=== PATIENT | female | born 1975 | race Caucasian/White ===

== ENCOUNTER 2019-05-05 19:25 | Emergency (ER) | payer SELFPAY ==
--- OUTSIDE RECORDS SUMMARY | 2019-05-05 19:28 | XMS REPORT ---
:1975 [facility] Address [address] [place] [address] Care Team Providers Name Role Phone Unavailable Unavailable Unavailable Problems This patient has no known problems. Allergies, Adverse Reactions, Alerts This patient has no known allergies or adverse reactions. Medications This patient has no known medications. Results Test Description Test Time Test Comments Text Results Atomic Results Result Comments SCR MAMM BILATERAL NELY 2019-03-28 14:01:17 - SCR MAMM BILATERAL NELY CAD CAD DIGITAL DIGITALBILATERAL DIGITAL SCREENING MAMMOGRAM 3D/2D WITH CAD: 03/25/2019CLINICAL: Asymptomatic. Digital breast tomosynthesis was performed in addition to routine CC and MLO views. Current mammographic images were evaluated by either a [employer] M-Vu or a [employer] ImageChecker CAD (computer aided detection system). No prior exams were available for comparison. The tissue of both breasts is heterogeneously dense. This may lower the sensitivity of mammography. No suspicious mass, architectural distortion, malignant type calcification, or lymph node abnormality detected. IMPRESSION: NEGATIVEThere is no mammographic evidence of malignancy. Resume annual screening mammography in one year. Ratna owen/penrad:03/28/2019 14:01:17 Entry: brayden - 03/28/2019 14:56:42Imaging Technologist: Nicki Nation MM, [facility] Mammographyletter sent: BIRADS 1-2 Normal Mammogram BI-RADS: 1 Negative
[2019-05-05] MEDS ORDERED: LIDOCAINE VISCOUS 2% SOLN 15 ML UDC ONE (20:35)
[2019-05-05] MEDS ORDERED: MAGNE/ALUM HYDROXD 30 ML UCUP ONE (20:35)
--- NOTE | 2019-05-05 20:51 | EDPHYS ---
Physician Documentation [facility] Name: Aline Alfred Age: 43 yrs Sex: Female : 1975 Arrival Date: 05/05/2019 Time: 19:27 Bed 26 Private MD: ED Physician Hardik Bowie HPI: 05/05 20:42 This 43 yrs old Female presents to ER via Ambulatory with complaints of kb Abdominal Pain, Sore Throat, Redness of Eye. 20:42 The patient presents with sore throat. The patient describes throat pain as constant. kb Onset: The symptoms/episode began/occurred 6 day(s) ago. Severity of symptoms: At their worst the symptoms were moderate, in the emergency department the symptoms are unchanged. Modifying factors: The symptoms are alleviated by nothing, the symptoms are aggravated by swallowing, Patient's oral intake status: limited fluid intake, limited food intake, Associated signs and symptoms: Pertinent positives: Sore throat. The patient has not experienced similar symptoms in the past. The patient has been recently seen at an urgent care, this week, for similar complaints. Pt reports sore throat and redness to left eye for 6 days. States she took a tylenol with codeine today on an empty stomach and it caused burning to stomach. States she has problems with her stomach anyway and has to be careful with what she consumes because it gets upset easily. . 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 - Social history:: Smoking status: Patient/guardian denies using tobacco. - Ebola Screening: : No symptoms or risks identified at this time. ROS: 20:41 Constitutional: Negative for fever, chills, and weight loss, Neck: Negative for injury, kb pain, and swelling, Cardiovascular: Negative for chest pain, palpitations, and edema, Respiratory: Negative for shortness of breath, cough, wheezing, and pleuritic chest pain, Back: Negative for injury and pain, : Negative for injury, bleeding, discharge, and swelling, MS/Extremity: Negative for injury and deformity, Skin: Negative for injury, rash, and discoloration, Neuro: Negative for headache, weakness, numbness, tingling, and seizure. 20:41 Eyes: Positive for discharge, redness. 20:41 ENT: Positive for sore throat. 20:41 Abdomen/GI: Positive for abdominal pain. Exam: 20:41 Constitutional: This is a well developed, well nourished patient who is awake, alert, kb and in no acute distress. Head/Face: Normocephalic, atraumatic. Neck: Trachea midline, no thyromegaly or masses palpated, and no cervical lymphadenopathy. Supple, full range of motion without nuchal rigidity, or vertebral point tenderness. No Meningismus. Chest/axilla: Normal chest wall appearance and motion. Nontender with no deformity. No lesions are appreciated. Cardiovascular: Regular rate and rhythm with a normal S1 and S2. No gallops, murmurs, or rubs. Normal PMI, no JVD. No pulse deficits. Respiratory: Lungs have equal breath sounds bilaterally, clear to auscultation and percussion. No rales, rhonchi or wheezes noted. No increased work of breathing, no retractions or nasal flaring. Abdomen/GI: Soft, non-tender, with normal bowel sounds. No distension or tympany. No guarding or rebound. No evidence of tenderness throughout. Skin: Warm, dry with normal turgor. Normal color with no rashes, no lesions, and no evidence of cellulitis. MS/ Extremity: Pulses equal, no cyanosis. Neurovascular intact. Full, normal range of motion. Neuro: Awake and alert, GCS 15, oriented to person, place, time, and situation. Cranial nerves II-XII grossly intact. Motor strength 5/5 in all extremities. Sensory grossly intact. Cerebellar exam normal. Normal gait. 20:41 Eyes: Conjunctiva: injected, in the left eye. 20:41 ENT: Posterior pharynx: Airway: normal, no evidence of obstruction, swelling, that is mild, erythema, that is marked, exudate, that is moderate. Vital Signs: 19:37 BP 119 / 72; Pulse 89; Resp 16; Temp 98.1; Pulse Ox 99% on R/A; Weight 63.5 kg (R); ak1 Height 5 ft. 2 in. (157.48 cm) (R); Pain 5/10; 19:57 BP 109 / 54; Pulse 78; Resp 18; Pulse Ox 99% on R/A; wh 21:08 BP 123 / 70; Pulse 76; Resp 17; Pulse Ox 98% on R/A; wh 19:37 Body Mass Index 25.61 (63.50 kg, 157.48 cm) ak1 MDM: 19:42 Patient medically screened. kb 20:42 Data reviewed: vital signs, nurses notes. Data interpreted: Pulse oximetry: on room air kb is 99 %. Interpretation: normal. Counseling: I had a detailed discussion with the patient and/or guardian regarding: the historical points, exam findings, and any diagnostic results supporting the discharge/admit diagnosis, lab results, the need for outpatient follow up, a family practitioner, to return to the emergency department if symptoms worsen or persist or if there are any questions or concerns that arise at home. 05/05 20:10 Order name: Strep; Complete Time: 20:34 kb Administered Medications: 20:23 Drug: GI Cocktail without - (Maalox Suspension 30 ml, Lidocaine Liquid 2 % 15 cr4 ml) Route: PO; 21:08 Follow up: Response: No adverse reaction 20:47 Drug: Augmentin 875 mg Route: PO; 21:08 Follow up: Response: No adverse reaction 21:04 Drug: Zofran 4 mg Route: PO; 21:09 Follow up: Response: No adverse reaction Disposition: 05/05/19 20:50 Discharged to Home. Impression: Streptococcal pharyngitis, Conjunctivitis. - Condition is Stable. - Discharge Instructions: Strep Throat, Puyk-ct-Expl, Bacterial Conjunctivitis, [id number]. - Prescriptions for Augmentin 875- 125 mg Oral Tablet - take 1 tablet by ORAL route every 12 hours for 10 days; 20 tablet. Erythromycin 5 mg/gram (0.5 %) Ophthalmic Ointment - apply 1 ribbon by OPHTHALMIC route every 8 hours; 1 tube. - Medication Reconciliation Form, Thank You Letter, Antibiotic Education, Prescription Opioid Use form. - Follow up: Emergency Department; When: As needed; Reason: Worsening of condition. Follow up: Private Physician; When: 2 - 3 days; Reason: Recheck today's complaints, Continuance of care, Re-evaluation by your physician. Addendum: 05/06/2019 21:20 Co-signature as Attending Physician, Hardik Bowie MD. g s Signatures: Dispatcher [employer] ED KennMaria Elena, SAMRA-C COMPUTER SCIENTIST-Ratna Xavier, RN RN cr4 Martha Rodriguez, RN RN ak1 Álvaro Ricci Azeb, MD EDIN Dye Corrections: (The following items were deleted from the chart) 05/05 20:51 20:50 05/05/2019 20:50 Discharged to Home. Impression: Streptococcal pharyngitis. kb Condition is Stable. Forms are Medication Reconciliation Form, Thank You Letter, Antibiotic Education, Prescription Opioid Use. Follow up: Emergency Department; When: As needed; Reason: Worsening of condition. Follow up: Private Physician; When: 2 - 3 days; Reason: Recheck today's complaints, Continuance of care, Re-evaluation by your physician. kb 21:09 20:51 05/05/2019 20:50 Discharged to Home. Impression: Streptococcal pharyngitis; wh Conjunctivitis. Condition is Stable. Discharge Instructions: Strep Throat, [id number]-hm-Nzql, Bacterial Conjunctivitis, Gnlp-zc-Ygny. Prescriptions for Augmentin 875-125 mg Oral Tablet - take 1 tablet by ORAL route every 12 hours for 10 days; 20 tablet, Erythromycin 5 mg/gram (0.5 %) Ophthalmic Ointment - apply 1 ribbon by OPHTHALMIC route every 8 hours; 1 tube. and Forms are Medication Reconciliation Form, Thank You Letter, Antibiotic Education, Prescription Opioid Use. Follow up: Emergency Department; When: As needed; Reason: Worsening of condition. Follow up: Private Physician; When: 2 - 3 days; Reason: Recheck today's complaints, Continuance of care, Re-evaluation by your physician. kb
--- NOTE | 2019-05-05 20:51 | ER ---
Nurse's Notes [facility] Name: Aline Alfred Age: 43 yrs Sex: Female : 1975 Arrival Date: 05/05/2019 Time: 19:27 Bed 26 Private MD: Diagnosis: Streptococcal pharyngitis;Conjunctivitis Presentation: 05/05 19:38 Presenting complaint: Patient states: throat pain since Thursday. pt took tylenol #3 at ak1 1800, pt now c/o burning pain in abd. Transition of care: patient was not received from another setting of care. Onset of symptoms is unknown. Risk Assessment: Do you want to hurt yourself or someone else? Patient reports no desire to harm self or others. Initial Sepsis Screen: Does the patient meet any 2 criteria? No. Patient's initial sepsis screen is negative. Does the patient have a suspected source of infection? No. Patient's initial sepsis screen is negative. Care prior to arrival: None. 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 - Social history:: Smoking status: Patient/guardian denies using tobacco. - Ebola Screening: : No symptoms or risks identified at this time. Screenin:53 Abuse screen: Denies threats or abuse. Denies injuries from another. Nutritional wh screening: No deficits noted. Tuberculosis screening: No symptoms or risk factors identified. Fall Risk None identified. Assessment: 19:51 General: Appears in no apparent distress. Behavior is calm, cooperative, appropriate wh for age. Pain: Complains of pain in epigastric area Pain does not radiate. Pain currently is 5 out of 10 on a pain scale. Quality of pain is described as burning, Pain began 2 hours ago. Neuro: Level of Consciousness is awake, alert, obeys commands, Oriented to person, place, time, situation, Appropriate for age. Cardiovascular: Heart tones S1 S2. Respiratory: Airway is patent Respiratory effort is even, unlabored, Respiratory pattern is regular, symmetrical, Breath sounds are clear bilaterally. GI: Abdomen is flat, non-distended, Bowel sounds present X 4 quads. Abd is soft and non tender X 4 quads. : No signs and/or symptoms were reported regarding the genitourinary system. EENT: No signs and/or symptoms were reported regarding the EENT system. Derm: Skin is intact, is healthy with good turgor, Skin is pink, warm \T\ dry. normal. Musculoskeletal: Range of motion: intact in all extremities. 21:07 Reassessment: Patient appears in no apparent distress at this time. Patient and/or family updated on plan of care and expected duration. Pain level reassessed. Patient is alert, oriented x 3, equal unlabored respirations, skin warm/dry/pink. Patient states feeling better. Patient states symptoms have improved. Vital Signs: 19:37 BP 119 / 72; Pulse 89; Resp 16; Temp 98.1; Pulse Ox 99% on R/A; Weight 63.5 kg (R); ak1 Height 5 ft. 2 in. (157.48 cm) (R); Pain 5/10; 19:57 BP 109 / 54; Pulse 78; Resp 18; Pulse Ox 99% on R/A; wh 21:08 BP 123 / 70; Pulse 76; Resp 17; Pulse Ox 98% on R/A; wh 19:37 Body Mass Index 25.61 (63.50 kg, 157.48 cm) ak1 ED Course: 19:27 Patient arrived in ED. rg4 19:37 Arm band placed on Patient placed in an exam room, on a stretcher, Patient notified of ak1 wait time. 19:38 Triage completed. ak1 19:39 Maria Elena Hawk FNP-C is [facility]. kb 19:40 Hardik Bowie MD is Attending Physician. kb 19:44 Álvaro Ricci is Primary Nurse. wh 19:53 Patient has correct armband on for positive identification. Bed in low position. Call light in reach. Side rails up X 1. Pulse ox on. NIBP on. 20:23 Strep Sent. cr4 Administered Medications: 20:23 Drug: GI Cocktail without - (Maalox Suspension 30 ml, Lidocaine Liquid 2 % 15 cr4 ml) Route: PO; 21:08 Follow up: Response: No adverse reaction 20:47 Drug: Augmentin 875 mg Route: PO; 21:08 Follow up: Response: No adverse reaction 21:04 Drug: Zofran 4 mg Route: PO; 21:09 Follow up: Response: No adverse reaction Outcome: 20:50 Discharge ordered by MD. tyson 21:09 Patient left the ED. Signatures: Maria Elena Hawk, MARIO CABRALES-Ratna Xavier RN RN cr4 Martha Rodriguez RN RN ak1 Daiana Adame4 Álvaro Ricci
[2019-05-05] MEDS ORDERED: AMOX/K CLAV 875 MG TAB ONE (20:58)
[2019-05-05] MEDS ORDERED: ONDANSETRON 4 MG (ODT) TAB ONE (21:19)
== END 2019-05-05 21:09 | disposition home or self-care (01) ==
LOC: ER 19:25
DX: J02.0 Streptococcal pharyngitis (principal); H10.9 Unspecified conjunctivitis; Z88.1 Allergy status to other antibiotic agents
CPT/HCPCS: 87081; 99283

== ENCOUNTER 2021-10-22 08:52 | Emergency (ER) | payer SELFPAY ==
--- OUTSIDE RECORDS SUMMARY | 2021-10-22 08:54 | XMS REPORT | Continuity of Care Document ---
:1975 Author Organization [facility] t Address [address] [place] [address] Care Team Providers Name Role Phone Unavailable Unavailable Unavailable Problems This patient has no known problems. Allergies, Adverse Reactions, Alerts This patient has no known allergies or adverse reactions. Medications This patient has no known medications. Procedures This patient has no known procedures. Results Test Description Test Time Test Comments Results Result Sourc e Comments SCR MAMM 2019-03-28 - SCR MAMM BILATERAL BILATERAL NELY 14:01:17 NELY CAD CAD DIGITAL DIGITALBILATERAL DIGITAL SCREENING MAMMOGRAM 3D/2D WITH CAD: 03/25/2019CLINICAL: Asymptomatic. Digital breast tomosynthesis was performed in addition to routine CC and MLO views. Current mammographic images were evaluated by either a [employer] M-Vu or a [employer] ImageChecker CAD (computer aided detection system). No prior exams were available for comparison. The tissue of both breasts is heterogeneously dense. This may lower the sensitivity of mammography. No suspicious mass, architectural distortion, malignant type calcification, or lymph node abnormality detected. IMPRESSION: NEGATIVEThere is no mammographic evidence of malignancy. Resume annual screening mammography in one year. Ratna owen/allyson:03/28/2019 14:01:17 Entry: brayden - 03/28/2019 14:56:42Imaging Technologist: Nicki Nation MM, [facility] Mammographyletter sent: BIRADS 1-2 Normal Mammogram BI-RADS: 1 Negative
[2021-10-22 10:29] LABS: Urine Blood Trace-intact (Negative); Urine Glucose Negative (Negative); Urine Protein Negative (Negative)
[2021-10-22] MEDS ORDERED: MORPHINE 4 MG/ML SYR ONE (11:38)
[2021-10-22] MEDS ORDERED: NA CHLORIDE 0.9% 1,000 ML ONE (11:38)
[2021-10-22] MEDS ORDERED: ONDANSETRON 4 MG/2 ML VIAL ONE (11:38)
[2021-10-22 11:42] LABS: Absolute Lymphocytes (CBC) 1.1 K/uL (0.7-4.9); Hematocrit 42.5 % (36.0-45.0); Lymphocytes % 5.8 % (15.3-44.8); MPV 10.1 fL (7.6-11.3); RBC Red Blood Cell Count 4.94 M/uL (3.86-4.86)
--- NOTE | 2021-10-22 11:58 | RAD REPORT ---
EXAM DESCRIPTION: CT - Stone Protocol - 10/22/2021 11:41 am CLINICAL HISTORY: Flank pain. CVA and flank pain;Abd pain COMPARISON: No comparisons TECHNIQUE: Axial images were obtained without oral or IV contrast. Lack of contrast limits solid org an and vascular assessment. The [id number] spans the entirety of the system partially obscuring uppermost abdomen and lung bases. Coronal reformatted images were obtained and reviewed. All CT scans are performed using dose optimization technique as appropriate and may include automated exposure control or mA/KV adjustment according to patient size. FINDINGS: The lower lung sharp are clear. Cholecystectomy clips. Imaged portions of the liver and spleen show no suspicious findings on non-contrast imaging. The panc reas and adrenal glands are normal. No pathologic lymphadenopathy in the abdomen or pelvis. Stones are present in the calices of both kidneys. The largest in the mid pole right kidney measuring 5 mm. No stone in the ureter or bladder seen. No significant hydronephrosis. No bowel obstruction, free air, free fluid or abscess. Appendectomy. No significant bony abnormality. IMPRESSION: Bilateral nephrolithiasis is present without hydronephrosis.
[2021-10-22 12:08] LABS: Albumin 3.5 g/dL (3.4-5.0); Bilirubin Direct 0.2 mg/dL (0-0.2); Bilirubin Total 0.3 mg/dL (0.2-1.0); Potassium 4.3 mmol/L (3.5-5.1); Protein, Total 7.5 g/dL (6.4-8.2)
--- NOTE | 2021-10-22 12:30 | EDPHYS ---
Physician Documentation [facility] Name: Aline Alfred Age: 45 yrs Sex: Female : 1975 Arrival Date: 10/22/2021 Time: 08:55 Bed 12 Private MD: ED Physician Sal Trujillo HPI: 10/22 12:38 This 45 yrs old Female presents to ER via Ambulatory with complaints of Back Pain, kdr Vomiting. 12:38 The patient presents with pain that is acute, with no known mechanism of injury. The kdr symptoms are located in the Right CVA and flank pain. Onset: The symptoms/episode began/occurred suddenly, just prior to arrival, this morning. Right foot. Associated signs and symptoms: Pertinent positives: nausea, vomiting, weakness, Patient states that she becomes syncopal or near syncopal when she has intense pain of this nature. The problem was sustained from unknown cause, Feels like her kidney stones are the source of the pain at this time. Modifying factors: The patient symptoms are alleviated by nothing, the patient symptoms are aggravated by any movement. Severity of symptoms: At their worst the symptoms were mild, moderate, just prior to arrival, in the emergency department the symptoms are unchanged. The patient has experienced similar episodes in the past, multiple times. The patient has been recently seen by a physician: Was recently treated for kidney infection. 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 - Social history:: Smoking status: Patient reports the use of cigarette tobacco products, smokes one-half pack cigarettes per day, Patient uses. ROS: 12:38 Constitutional: Negative for fever, chills, and weight loss, Eyes: Negative for injury, kdr pain, redness, and discharge, Neck: Negative for injury, pain, and swelling, Cardiovascular: Negative for chest pain, palpitations, and edema, Respiratory: Negative for shortness of breath, cough, wheezing, and pleuritic chest pain, : Negative for injury, bleeding, discharge, and swelling, MS/Extremity: Negative for injury and deformity, Skin: Negative for injury, rash, and discoloration, Neuro: Negative for headache, weakness, numbness, tingling, and seizure activity. Psych: Negative for depression, anxiety, suicide ideation, homicidal ideation, and hallucinations, Allergy/Immunology: Negative for hives, rash, and allergies, Endocrine: Negative for neck swelling, polydipsia, polyuria, polyphagia, and marked weight changes, Hematologic/Lymphatic: Negative for swollen nodes, abnormal bleeding, and unusual bruising. 12:38 Abdomen/GI: Positive for nausea and vomiting, Negative for diarrhea, constipation, abdominal cramps, abdominal distension, anorexia, dysphagia, hematemesis, black/tarry stool, rectal pain, rectal bleeding, bowel incontinence. Exam: 12:38 Constitutional: This is a well developed, well nourished patient who is awake, alert, kdr and in moderate distress. Head/Face: Normocephalic, atraumatic. Eyes: Pupils equal round and reactive to light, extra-ocular motions intact. Lids and lashes normal. Conjunctiva and sclera are non-icteric and not injected. Cornea within normal limits. Periorbital areas with no swelling, redness, or edema. Neck: Trachea midline, no thyromegaly or masses palpated, and no cervical lymphadenopathy. Supple, full range of motion without nuchal rigidity, or vertebral point tenderness. No Meningismus. Chest/axilla: Normal chest wall appearance and motion. Nontender with no deformity. No lesions are appreciated. Cardiovascular: Regular rate and rhythm with a normal S1 and S2. No gallops, murmurs, or rubs. Normal PMI, no JVD. No pulse deficits. Respiratory: Lungs have equal breath sounds bilaterally, clear to auscultation and percussion. No rales, rhonchi or wheezes noted. No increased work of breathing, no retractions or nasal flaring. MS/ Extremity: Pulses equal, no cyanosis. Neurovascular intact. Full, normal range of motion. Neuro: Awake and alert, GCS 15, oriented to person, place, time, and situation. Cranial nerves II-XII grossly intact. Motor strength 5/5 in all extremities. Sensory grossly intact. Cerebellar exam normal. Normal gait. Psych: Awake, alert, with orientation to person, place and time. Behavior, mood, and affect are within normal limits. Vital Signs: 09:15 BP 141 / 75; Pulse 77; Resp 18; Temp 97.8; Pulse Ox 100% ; Weight 65.77 kg; Height 5 ll1 ft. 2 in. (157.48 cm); Pain 8/10; 13:24 BP 126 / 62; Pulse 80; Resp 17; Pulse Ox 100% ; ll1 09:15 Body Mass Index 26.52 (65.77 kg, 157.48 cm) ll1 MDM: 12:29 Patient medically screened. kdr 12:38 Data reviewed: vital signs, nurses notes, lab test result(s), radiologic studies. kdr Counseling: I had a detailed discussion with the patient and/or guardian regarding: the historical points, exam findings, and any diagnostic results supporting the discharge/admit diagnosis, lab results, radiology results, the need for outpatient follow up. ED course: Patient was greatly improved with the interventions given. She was happy with the care provided and the plan for discharge and follow-up. I discussed the laboratory results with her and indicated that follow-up will be needed in the next 7 to 10 days to repeat her labs and to make sure that the abnormal labs normalized. 10/22 10:29 Order name: Urine Dipstick-Ancillary; Complete Time: 12:16 EDPA 10/22 11:28 Order name: Basic Metabolic Panel; Complete Time: 12:16 kdr 10/22 11:28 Order name: CBC with Diff; Complete Time: 12:16 kdr 10/22 11:28 Order name: Hepatic Function; Complete Time: 12:16 kdr 10/22 11:28 Order name: CT Stone Protocol; Complete Time: 12:16 kdr 10/22 11:34 Order name: Urine --Ancillary (enter results); Complete Time: 13:38 4 10/22 11:28 Order name: IV Saline Lock; Complete Time: 11:32 kdr 10/22 11:28 Order name: Labs collected and sent; Complete Time: 11:32 kdr 10/22 11:28 Order name: Urine Dipstick-Ancillary (obtain specimen); Complete Time: 11:32 kdr Administered Medications: 11:52 Drug: NS 0.9% 1000 ml Route: IV; Rate: 1 bolus; Site: right antecubital; ll1 13:27 Follow up: Response: No adverse reaction; IV Status: Completed infusion; IV Intake: ll1 700ml 11:53 Drug: Zofran (Ondansetron) 4 mg Route: IVP; Site: right antecubital; ll1 13:26 Follow up: Response: No adverse reaction ll1 11:53 Drug: morphine 4 mg {Note: rass 0.} Route: IVP; Site: right antecubital; ll1 13:26 Follow up: Response: No adverse reaction ll1 12:55 Drug: [place] (HYDROcodone-acetaminophen) (7.5 mg-325 mg) 1 tabs Route: PO; ll1 13:26 Follow up: Response: No adverse reaction ll1 Disposition Summary: 10/22/21 12:29 Discharge Ordered Location: Home kdr Problem: an acute exacerbation kdr Symptoms: have improved kdr Condition: Stable kdr Diagnosis - Right back and flank pain kdr - Hematuria, unspecified kdr - Elevated white blood cell count, unspecified kdr Followup: kdr - With: Private Physician - When: 2 - 3 days - Reason: If symptoms return, Further diagnostic work-up, Recheck today's complaints, Continuance of care, Re-evaluation by your physician Discharge Instructions: - Discharge Summary Sheet kdr - Hematuria, Adult kdr - Renal Colic, [id number] kdr - Leukocytosis kdr - Liver Function Tests kdr Forms: - Medication Reconciliation Form kdr - Thank You Letter kdr - Antibiotic Education kdr - Prescription Opioid Use kdr - Work release form ll1 Prescriptions: - Zofran 4 mg Oral Tablet - take 1 tablet by ORAL route every 12 hours As needed; 12 tablet; Refills: 0, kdr Product Selection Permitted - Tramadol 50 mg Oral Tablet - take 1 tablet by ORAL route every 8 hours as needed; 12 tablet; Refills: 0, kdr Product Selection Permitted - Bactrim DS 800-160 mg Oral Tablet - take 1 tablet by ORAL route every 12 hours for 3 days; 6 tablet; Refills: 0, kdr Product Selection Permitted Signatures: Dispatcher [employer] Sal Bruno MD MD kdr Daya Guzman RN RN ll1
--- NOTE | 2021-10-22 12:30 | ER ---
Nurse's Notes [facility] Name: Aline Alfred Age: 45 yrs Sex: Female : 1975 Arrival Date: 10/22/2021 Time: 08:55 Bed 12 Private MD: Diagnosis: Right back and flank pain;Hematuria, unspecified;Elevated white blood cell count, unspecified Presentation: 10/22 09:15 Chief complaint: Patient states: "i think my kidney stones are moving again, I just ll1 woke up in shock." Pt endorses back pain, abdominal pain, and nausea. Coronavirus screen: Vaccine status: Patient reports receiving the 2nd dose of the covid vaccine. Client denies travel out of the [place] in the last 14 days. At this time, the client does not indicate any symptoms associated with coronavirus-19. Ebola Screen: Patient negative for fever greater than or equal to 101.5 degrees Fahrenheit, and additional compatible Ebola Virus Disease symptoms Patient denies exposure to infectious person. Patient denies travel to an Ebola-affected area in the 21 days before illness onset. Initial Sepsis Screen: Does the patient meet any 2 criteria? No. Patient's initial sepsis screen is negative. Does the patient have a suspected source of infection? No. Patient's initial sepsis screen is negative. Risk Assessment: Do you want to hurt yourself or someone else? Patient reports no desire to harm self or others. Onset of symptoms was October 22, 2021. 09:15 Method Of Arrival: Ambulatory ll1 09:15 Acuity: RACHAEL 3 ll1 Triage Assessment: 09:18 General: Appears in no apparent distress. well groomed, well developed, well nourished, ll1 Behavior is calm, cooperative, appropriate for age. Pain: Complains of pain in back and abdomen. Musculoskeletal: Circulation, motion, and sensation intact. Capillary refill < 3 seconds, Range of motion: intact in all extremities. 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 - Social history:: Smoking status: Patient reports the use of cigarette tobacco products, smokes one-half pack cigarettes per day, Patient uses. Screenin:25 Abuse screen: Denies threats or abuse. Nutritional screening: No deficits noted. ll1 Tuberculosis screening: No symptoms or risk factors identified. Fall Risk IV access (20 points). Gait- Weak (10 pts.). Total Mcneal Fall Scale indicates Low Risk Score (25-44 pts). Fall prevention measures have been instituted. Side Rails Up X 2 Placed close to Nursing Station Frequent Obs/Assesments occuring Family Present and informed to notify staff if they need to leave bedside As available Patient and Family Educated on Fall Prevention Program and strategies. Assessment: 10:15 Reassessment: No changes from previously documented assessment. Patient and/or family ll1 updated on plan of care and expected duration. Pain level reassessed. Patient is alert, oriented x 3, equal unlabored respirations, skin warm/dry/pink. 11:15 Reassessment: No changes from previously documented assessment. Patient and/or family ll1 updated on plan of care and expected duration. Pain level reassessed. Patient is alert, oriented x 3, equal unlabored respirations, skin warm/dry/pink. Neuro: No deficits noted. 12:15 Reassessment: No changes from previously documented assessment. Patient and/or family ll1 updated on plan of care and expected duration. Pain level reassessed. Patient is alert, oriented x 3, equal unlabored respirations, skin warm/dry/pink. 13:15 Reassessment: No changes from previously documented assessment. Patient and/or family ll1 updated on plan of care and expected duration. Pain level reassessed. Patient is alert, oriented x 3, equal unlabored respirations, skin warm/dry/pink. Patient states feeling better. Patient states symptoms have improved. Neuro: No deficits noted. Vital Signs: 09:15 BP 141 / 75; Pulse 77; Resp 18; Temp 97.8; Pulse Ox 100% ; Weight 65.77 kg; Height 5 ll1 ft. 2 in. (157.48 cm); Pain 8/10; 13:24 BP 126 / 62; Pulse 80; Resp 17; Pulse Ox 100% ; ll1 09:15 Body Mass Index 26.52 (65.77 kg, 157.48 cm) ll1 ED Course: 08:55 Patient arrived in ED. mr 08:58 Sal Trujillo MD is Attending Physician. kdr 09:17 Triage completed. ll1 10:12 Lizzy Nur, RN is Primary Nurse. 6 10:30 Inserted saline lock: 20 gauge in right antecubital area, using aseptic technique. ll1 Blood collected. 11:32 Arm band placed on. ll1 11:41 CT Stone Protocol In Process Unspecified. EDMI 13:25 Patient has correct armband on for positive identification. Bed in low position. Call ll1 light in reach. Side rails up X 1. Cardiac monitoring not applicable on this patient. 13:25 IV discontinued, intact, bleeding controlled, No redness/swelling at site. Pressure ll1 dressing applied. 13:26 No provider procedures requiring assistance completed. ll1 Administered Medications: 11:52 Drug: NS 0.9% 1000 ml Route: IV; Rate: 1 bolus; Site: right antecubital; ll1 13:27 Follow up: Response: No adverse reaction; IV Status: Completed infusion; IV Intake: ll1 700ml 11:53 Drug: Zofran (Ondansetron) 4 mg Route: IVP; Site: right antecubital; 1 13:26 Follow up: Response: No adverse reaction 1 11:53 Drug: morphine 4 mg {Note: rass 0.} Route: IVP; Site: right antecubital; ll1 13:26 Follow up: Response: No adverse reaction 1 12:55 Drug: [place] (HYDROcodone-acetaminophen) (7.5 mg-325 mg) 1 tabs Route: PO; ll1 13:26 Follow up: Response: No adverse reaction 1 Intake: 13:27 IV: 700ml; Total: 700ml. 1 Outcome: 12:29 Discharge ordered by . kdr 13:26 Discharged to home ambulatory. 1 13:26 Condition: stable 13:26 Discharge instructions given to patient, family, Instructed on discharge instructions, follow up and referral plans. medication usage, Demonstrated understanding of instructions, follow-up care, medications, Prescriptions given X 3. 13:27 Patient left the ED. 1 Signatures: Dispatcher [employer] [facility] Sal Trujillo MD MD kdr Rivera, Pat mr Daya Guzman, RN RN 1 Lizzy Nur, RN RN [facility]
[2021-10-22] MEDS ORDERED: HYDROCODONE/APAP 7.5/325 MG TAB ONE (12:53)
[2021-10-22 13:36] VITALS: TEMP 97.8; O2SAT 100
[2021-10-22 13:37] VITALS: BP 126/62
== END 2021-10-22 13:27 | disposition home or self-care (01) ==
LOC: ER 08:52
DX: M54.9 Dorsalgia, unspecified (principal); R10.9 Unspecified abdominal pain; R31.9 Hematuria, unspecified; D72.829 Elevated white blood cell count, unspecified; F17.210 Nicotine dependence, cigarettes, uncomplicated
CPT/HCPCS: 36415; 74176; 76377; 80048; 80076; 81003; 81025; 85025; 96361; 96374; 96375; 99284; J2405; J7030

== ENCOUNTER 2022-01-21 17:59 | Emergency (ER) | payer OTHER, SELFPAY ==
--- OUTSIDE RECORDS SUMMARY | 2022-01-21 18:02 | XMS REPORT | Continuity of Care Document ---
:1975 Author Organization [facility] t Address [address] [place] [address] Care Team Providers Name Role Phone Pcp, Does Not Have A Primary Care Physician NILAY LLAMAS Attending Clinician Unavailable Mookie FELIZ Attending Clinician CHACE BONNER Attending Clinician Unavailable Baudilio OROURKE Attending Clinician Unavailable NILAY LLAMAS Admitting Clinician Unavailable Baudilio OROURKE Admitting Clinician Unavailable Payers Payer Name Policy Type Policy Number Effective Date Expiration Date S ource [place] [id number] 2021 00:00:00 [facility] [id number] 2021 CHOICE EXCHANGE 00:00:00 Problems Condition Condition Condition Status Onset Resolution Last Treating Co mments Source Name Details Category Date Date Treatment Clinician Date No known No known Disease Unive rs active active ity of problems problems [facility] Allergies, Adverse Reactions, Alerts Allergy Allergy Status Severity Reaction(s) Onset Inactive Treating Comm ents Source Name Type Date Date Clinician CIPROFLO Allergy Active High Anaphylaxis 2020-[address] [facility] [address] [facility] SUKHDEV Allergy Active High Sob 2020-[address] [facility] Ciproflo Propensi Active Hives 2017-10 Univer s xacin ty to 2-05 ity of adverse 00:00: [place] reaction [address] [place] [address] Carbamaz Propensi Active Hives 2017-10 Univer s epine ty to 2-05 ity of adverse 00:00: [place] reaction 00 [facility] s Branch CARBAMAZ Allergy Active High Hives 2012[facility] Social History Social Habit Start Date Stop Date Quantity Comments Source Sex Assigned At [birth year] [facility] 00:00:00 00:00:00 Medical Branch Smoking Status Start Date Stop Date Source Unknown if ever smoked [facility] Medications Ordered Filled Start Stop Current Ordering Indication Dosage Frequency Signature Comments Components Source Medication Medication Date Date Medication? Clinician (SIG) Name Name ibuprofen 2017-10 Yes 600mg Take 1 Unive rs 600 mg 2-05 tablet by ity of tablet 00:00: mouth [place] 00 every 6 Medical (six) Branch hours as needed for Pain (scale 4-6). Immunizations Ordered Filled Immunization Date Status Comments Dagmar e Immunization Name Name SARS-COV-2 COVID-19 2021-01-04 Completed Unive rsity of PFIZER VACCINE 00:00:00 [facility] SARS-COV-2 COVID-19 2020-12-18 Completed Unive rsity of PFIZER VACCINE 00:00:00 [facility] Vital Signs Vital Name Observation Time Observation Value Comments Source HEIGHT 2021-12-06 12:35:00 157.5 cm WEIGHT 2021-12-06 12:35:00 65.772 kg HEIGHT 2022-01-21 08:32:00 157.5 cm WEIGHT 2022-01-21 08:32:00 69.582 kg HEIGHT 2022-01-17 16:23:00 157.5 cm WEIGHT 2022-01-17 16:23:00 68.947 kg Procedures Procedure Date / Time Performed Performing Clinician Dagmar e QUANTIFERON-TB ASSAY 2022-01-03 16:05:[address] [facility] Encounters Start End Encounter Admission Attending Care Care Encounter Source Date/Time Date/Time Type Type Clinicians Facility Department ID 2021-11-15 Outpatient EL MURIEL, [facility] Surgery [id number] [facility] 08:44:00 LISET 2022-01-21 2022-01-21 Outpatient EL MURIEL, [facility] Surgery [id number] [facility] 08:05:00 11:48:00 L[facility]ET 2022-01-17 2022-01-17 Outpatient [facility] [id number] [facility] 16:37:03 23:59:00 2022-01-03 2022-01-03 [facility] [id number] [facility] 11:21:00 23:59:00 Encounter florencio, [id number] [id number] Kisha CONTRERAS [id number] Mi dical 036 Branch 2021-12-06 2021-12-06 Outpatient EL SLE SLE [id number] [facility] 12:56:57 23:59:00 2021-10-23 2021-10-25 Outpatient ER HA, [facility] Gastro [id number] SLE 21:41:00 13:22:00 NEJMUDIN Results Test Description Test Time Test Comments Results Result Sour e Comments [id number] 2022-01-21 INTRA OP 10:13:19 IMAGINGReason for exam:->[facility]ic [facility] 1975 Sex: F An imaging unit was utilized for this procedure. No radiologist interpretation was requested. Refer to the EMR for findings. Refer to PACS for any patient radiation dose information. HEPATIC FUNCTION PANEL 2021-11-06 05:22:08 Test Item Value Reference Range Interpretation Comme nts PROTEIN, TOTAL (test code = 6.9 G/DL 6.1-8.3 2228) ALBUMIN (test code = 220) 4.4 G/DL 3.5-5.2 BILIRUBIN, TOTAL (test code = <0.2 MG/DL See_Comment [Automated message] The system 2206) which generated this result transmitted ref erence range: <=1.2. The refe rence range was not used to int erpret this result as reji l/abnormal. BILIRUBIN, DIRECT (test code <0.2 MG/DL 0.0-0.3 = 2021) ALKALINE PHOSPHATASE (test 142 U/L 40-115 H code = 2204) AST (test code = 2218) 49 U/L 9-40 H ALT (test code = 2219) 82 U/L 5-40 H UNLESS OTHERWISE INDICATED, ALL TESTING PERFORMED [facility], [facility]. [address] [place] [id number] LABORATORY DIRE CTOR: STEFANI METCALF M.D. CLIA NUMBER [id number] [facility] ACCREDITATION N O. [id number] BILIRUBIN, [id number] 09:31:11 Test Item Value Reference Range Interpretation Comments BILIRUBIN DIRECT (BEAKER) (test 0.5 mg/dL 0.1-0.5 code = 706) Photographer'S Assistant ID - PIAYA LCOMPREHENSIVE METABOLIC [id number] 09:31:10 Test Item Value Reference Range Interpretation Comments TOTAL PROTEIN 6.4 gm/dL 6.0-8.3 (BEAKER) (test code = 770) ALBUMIN (BEAKER) 3.6 g/dL 3.5-5.0 (test code = 1145) ALKALINE PHOSPHATASE 271 U/L 40-150 H (BEAKER) (test code = 346) BILIRUBIN TOTAL 0.9 mg/dL 0.2-1.2 (BEAKER) (test code = 377) SODIUM (BEAKER) (test 138 meq/L 136-145 code = 381) POTASSIUM (BEAKER) 3.7 meq/L 3.5-5.1 (test code = 379) CHLORIDE (BEAKER) 105 meq/L 98-107 (test code = 382) CO2 (BEAKER) (test 26 meq/L 22-29 code = 355) BLOOD UREA NITROGEN 7 mg/dL 7-21 (BEAKER) (test code = 354) CREATININE (BEAKER) 0.67 mg/dL 0.57-1.25 (test code = 358) GLUCOSE RANDOM 132 mg/dL 70-105 H (BEAKER) (test code = 652) CALCIUM (BEAKER) 8.8 mg/dL 8.4-10.2 (test code = 697) AST (SGOT) (BEAKER) 213 U/L 5-34 H (test code = 353) ALT (SGPT) (BEAKER) 714 U/L 6-55 H (test code = 347) EGFR (BEAKER) (test 96 mL/min/1.73 ESTIMA BLANCA GFR IS code = 1092) sq m NOT ACCURATE CREATININE CLEARANCE IN PREDICTING GLOMERULAR FILTRATION RATE . ESTIMATED GFR I S NOT APPLICABLE FOR DIALYSIS PATIEN TS. Photographer'S Assistant ID - PIAYA LCBC W/PLT COUNT & AUTO [id number] 09:08:04 Test Item Value Reference Range Interpretation Comments WHITE BLOOD CELL COUNT (BEAKER) 12.7 K/ L 3.5-10.5 H (test code = 775) RED BLOOD CELL COUNT (BEAKER) 4.22 M/ L 3.93-5.22 (test code = 761) HEMOGLOBIN (BEAKER) (test code = 12.2 GM/DL 11.2-15.7 410) HEMATOCRIT (BEAKER) (test code = 37.0 % 34.1-44.9 411) MEAN CORPUSCULAR VOLUME (BEAKER) 87.7 fL 79.4-94.8 (test code = 753) MEAN CORPUSCULAR HEMOGLOBIN 28.9 pg 25.6-32.2 (BEAKER) (test code = 751) MEAN CORPUSCULAR HEMOGLOBIN CONC 33.0 GM/DL 32.2-35.5 (BEAKER) (test code = 752) RED CELL DISTRIBUTION WIDTH 12.2 % 11.7-14.4 (BEAKER) (test code = 412) PLATELET COUNT (BEAKER) (test 208 K/CU MM 150-450 code = 756) MEAN PLATELET VOLUME (BEAKER) 11.8 fL 9.4-12.3 (test code = 754) NUCLEATED RED BLOOD CELLS 0 /100 WBC 0-0 (BEAKER) (test code = 413) NEUTROPHILS RELATIVE PERCENT 87 % (BEAKER) (test code = 429) LYMPHOCYTES RELATIVE PERCENT 7 % (BEAKER) (test code = 430) MONOCYTES RELATIVE PERCENT 5 % (BEAKER) (test code = 431) EOSINOPHILS RELATIVE PERCENT 0 % (BEAKER) (test code = 432) BASOPHILS RELATIVE PERCENT 0 % (BEAKER) (test code = 437) NEUTROPHILS ABSOLUTE COUNT 11.06 K/ L 1.56-6.13 H (BEAKER) (test code = 670) LYMPHOCYTES ABSOLUTE COUNT 0.88 K/ L 1.18-3.74 L (BEAKER) (test code = 414) MONOCYTES ABSOLUTE COUNT (BEAKER) 0.64 K/ L 0.24-0.36 H (test code = 415) EOSINOPHILS ABSOLUTE COUNT 0.01 K/ L 0.04-0.36 L (BEAKER) (test code = 416) BASOPHILS ABSOLUTE COUNT (BEAKER) 0.01 K/ L 0.01-0.08 (test code = 417) IMMATURE GRANULOCYTES-RELATIVE 1 % 0-1 PERCENT (BEAKER) (test code = 2801) SARS-COV2/RT-PCR ([facility])2021-10-24 22:11:05 Test Item Value Reference Range Interpretation Comments SARS-COV2/RT-PCR (test code = Negative Negative [id number]) Negative result for this test determines that SARS-CoV-2 RNA was not present in the specimen above the Limit of Detection (LOD). However, Negative results do not preclude SARS-CoV-2 infection and should not be used as the sole basis for treatment or patient management decisions. Negative results must be combined with clinical observations, patient history, and epidemiological information. A false negative result may occur if a specimen is improperly collected, transported, or handled. A false negative result should be considered if patient's recent exposures or clinical presentation indicate that COVID-19 (SARS-CoV-2) is likely and diagnostic tests for other causes of illness are negative. Re-testing should be considered in cases of suspected false negatives.The limit of detection for this assay is 100 copies/mL.This SARS-CoV-2 test is a real-time RT_PCR test intended for the qualitative detection of nucleic acid from SARS-CoV-2 in a nasopharyngeal swab specimen collected from individuals suspected of COVID-19 by their healthcare provider.This test has not been Food and Drug Administration (FDA) cleared or approved. This is a modified version of an approved Emergency Use Authorization (EUA) and is in the process of review by the FDA. Once authorized by the FDA, the issued EUA will be e ffective until the declaration that circumstances exist justifying the authorization of the emergency use of in vitro diagnostic tests for detection and/or diagnosis of COVID-19 is terminated under Section 564(b)(2) of the Act or the EUA is revoked under Section 564(g) of the Act.Testing was performedusing the Cee SARS-CoV-2 assay.Fact Sheet for Healthcare Providers:https://www.[employer].DoApp/arielle/RT SARS-CoV-2 HCP Fact Sheet 51- 070442.pdfFact Sheet for Healthcare Patients:https://www.[employer].DoApp/arielle/RT SARS-CoV-2 Patient Fact Sheet EN 51-807037C9.pdfFL, [id number] 19:02:20INTRA OP IMAGING Reason for exam:->abnormal imaging [facility] 1975 Sex: FFluoroscopic unit utilized for a procedure performed in the OR. No interpretation was requested. Refer to the operative report for findings. Refer to PACS for patient radiation dose information.[id number] 06:16:23 Test Item Value Reference Range Interpretation Comments LIPASE (BEAKER) (test code = 749) 10 U/L 8-78 Photographer'S Assistant ID - PIAYA LHEPATIC FUNCTION [id number] 06:16:22 Test Item Value Reference Range Interpretation Comments TOTAL PROTEIN (BEAKER) (test code = 6.3 gm/dL 6.0-8.3 770) ALBUMIN (BEAKER) (test code = 1145) 3.5 g/dL 3.5-5.0 BILIRUBIN TOTAL (BEAKER) (test code 1.2 mg/dL 0.2-1.2 = 377) BILIRUBIN DIRECT (BEAKER) (test 0.7 mg/dL 0.1-0.5 H code = 706) ALKALINE PHOSPHATASE (BEAKER) (test 262 U/L 40-150 H code = 346) AST (SGOT) (BEAKER) (test code = 779 U/L 5-34 H 353) ALT (SGPT) (BEAKER) (test code = 1143 U/L 6-55 H 347) Photographer'S Assistant ID - NOLVIA LLIPID [id number] 06:16:22 Test Item Value Reference Range Interpretation Comments TRIGLYCERIDES (BEAKER) (test code = 97 mg/dL 540) CHOLESTEROL (BEAKER) (test code = 184 mg/dL 631) HDL CHOLESTEROL (BEAKER) (test code 51 mg/dL = 976) LDL CHOLESTEROL CALCULATED (BEAKER) 114 mg/dL (test code = 633) Triglyceride Reference Range: Low Risk <150 Borderline 150-199 High Risk 200-499 Very High Risk >=500Cholesterol Reference Range: Low Risk <200 Borderline 200-239 High Risk >240HDL Cholesterol Reference Range: Low Risk >=60 High Risk <40LDL Cholesterol Reference Range: Optimal <100 Near Optimal 100-129 Borderline 130-159 High 160-189 Very High >=190 Photographer'S Assistant ID - PIAYALBASIC METABOLIC [id number] 06:16:20 Test Item Value Reference Range Interpretation Comments SODIUM (BEAKER) 138 meq/L 136-145 (test code = 381) POTASSIUM (BEAKER) 3.6 meq/L 3.5-5.1 (test code = 379) CHLORIDE (BEAKER) 104 meq/L 98-107 (test code = 382) CO2 (BEAKER) (test 27 meq/L 22-29 code = 355) BLOOD UREA NITROGEN 8 mg/dL 7-21 (BEAKER) (test code = 354) CREATININE (BEAKER) 0.70 mg/dL 0.57-1.25 (test code = 358) GLUCOSE RANDOM 81 mg/dL 70-105 (BEAKER) (test code = 652) CALCIUM (BEAKER) 8.5 mg/dL 8.4-10.2 (test code = 697) EGFR (BEAKER) (test 91 mL/min/1.73 ESTIMA BLANCA GFR IS code = 1092) sq m NOT ACCURATE CREATININE CLEARANCE IN PREDICTING GLOMERULAR FILTRATION RATE . ESTIMATED GFR I S NOT APPLICABLE FOR DIALYSIS PATIEN TS. Photographer'S Assistant ID - PIAYA LPROTHROMBIN [id number] 05:32:59 Test Item Value Reference Range Interpretation Comments PROTIME (BEAKER) 14.8 seconds 11.9-14.2 H (test code = 759) INR (BEAKER) (test 1.18 See_Comment [Automat ed message] code = 370) The system [employer] generated this result transmitted ref erence range: <=5.90. The reference range was not used to int erpret this result as normal/abnormal . RECOMMENDED COUMADIN/WARFARIN INR THERAPY RANGESSTANDARD DOSE: 2.0 - 3.0 Includes: PROPHYLAXIS forvenous thrombosis, systemic embolization; TREATMENT for venous thrombosis and/or pulmonary embolus.HIGH RISK: Target INR is 2.5-3.5 for patients with mechanical heart valves.CBC W/PLT COUNT & AUTO DIFFERENTIAL 2021-10-24 05:24:54 Test Item Value Reference Range Interpretation Comments WHITE BLOOD CELL COUNT (BEAKER) 9.1 K/ L 3.5-10.5 (test code = 775) RED BLOOD CELL COUNT (BEAKER) 4.06 M/ L 3.93-5.22 (test code = 761) HEMOGLOBIN (BEAKER) (test code = 11.8 GM/DL 11.2-15.7 410) HEMATOCRIT (BEAKER) (test code = 36.1 % 34.1-44.9 411) MEAN CORPUSCULAR VOLUME (BEAKER) 88.9 fL 79.4-94.8 (test code = 753) MEAN CORPUSCULAR HEMOGLOBIN 29.1 pg 25.6-32.2 (BEAKER) (test code = 751) MEAN CORPUSCULAR HEMOGLOBIN CONC 32.7 GM/DL 32.2-35.5 (BEAKER) (test code = 752) RED CELL DISTRIBUTION WIDTH 12.5 % 11.7-14.4 (BEAKER) (test code = 412) PLATELET COUNT (BEAKER) (test 186 K/CU MM 150-450 code = 756) MEAN PLATELET VOLUME (BEAKER) 11.8 fL 9.4-12.3 (test code = 754) NUCLEATED RED BLOOD CELLS 0 /100 WBC 0-0 (BEAKER) (test code = 413) NEUTROPHILS RELATIVE PERCENT 76 % (BEAKER) (test code = 429) LYMPHOCYTES RELATIVE PERCENT 13 % (BEAKER) (test code = 430) MONOCYTES RELATIVE PERCENT 7 % (BEAKER) (test code = 431) EOSINOPHILS RELATIVE PERCENT 3 % (BEAKER) (test code = 432) BASOPHILS RELATIVE PERCENT 1 % (BEAKER) (test code = 437) NEUTROPHILS ABSOLUTE COUNT 6.88 K/ L 1.56-6.13 H (BEAKER) (test code = 670) LYMPHOCYTES ABSOLUTE COUNT 1.18 K/ L 1.18-3.74 (BEAKER) (test code = 414) MONOCYTES ABSOLUTE COUNT (BEAKER) 0.66 K/ L 0.24-0.36 H (test code = 415) EOSINOPHILS ABSOLUTE COUNT 0.28 K/ L 0.04-0.36 (BEAKER) (test code = 416) BASOPHILS ABSOLUTE COUNT (BEAKER) 0.06 K/ L 0.01-0.08 (test code = 417) IMMATURE GRANULOCYTES-RELATIVE 0 % 0-1 PERCENT (BEAKER) (test code = 2801) SCR MAMM BILATERAL NELY CAD [id number] 14:01:17 - SCR MAMM BILATERAL NELY CAD DIGITALBILATERAL DIGITAL SCREENING MAMMOGRAM 3D/2D WITH CAD: 03/25/2019 CLINICAL: Asymptomatic. Digital breast tomosynthesis was performed in addition to routine CC and MLO views. Current mammographic images were evaluated by either a [employer] M-Vu or a [employer] ImageChecker CAD (computer aided detection system). No prior exams were available for comparison. The tissue of both breasts is heterogeneously dense. This may lower the sensitivity of mammography. No suspicious mass, architectural distortion, malignant type calcification, or lymph node abnormality detected. IMPRESSION: NEGATIVEThere is no mammographic evidence of malignancy. Resume annual screening mammography in one year. Ratna owen/penrad:03/28/2019 14:01:17 Entry: cc - 03/28/2019 14:56:42Imaging Technologist: Nicki Nation MM, [facility] Mammographyletter sent: BIRADS 1-2 Normal Mammogram BI-RADS: 1 Negative
[2022-01-21] MEDS ORDERED: NA CHLORIDE 0.9% 1,000 ML ONE ×2 (18:34→18:38)
[2022-01-21] MEDS ORDERED: ONDANSETRON 4 MG/2 ML VIAL ONE ×2 (18:38→22:37)
[2022-01-21 18:55] LABS: Hematocrit 38.4 % (36.0-45.0); Lymphocytes % 6.8 % (15.3-44.8); MPV 9.6 fL (7.6-11.3); RBC Red Blood Cell Count 4.57 M/uL (3.86-4.86)
[2022-01-21 19:21] LABS: Albumin 3.6 g/dL (3.4-5.0); Bilirubin Total 0.5 mg/dL (0.2-1.0); Potassium 3.7 mmol/L (3.5-5.1); Protein, Total 7.3 g/dL (6.4-8.2)
[2022-01-21] MEDS ORDERED: FENTANYL CITR 100 MCG/2 ML ONE ×2 (19:28→21:17)
--- NOTE | 2022-01-21 20:05 | RAD REPORT ---
EXAM DESCRIPTION: CTAbdomen Pelvis W Contrast - 01/21/2022 7:54 pm CLINICAL HISTORY: Abdominal pain. ERCP today;Abd pain COMPARISON: <Comparisons> TECHNIQUE: Biphasic CT imaging of the abdomen and pelvis was performed with 100 ml non-ionic IV cont rast. All CT scans are performed using dose optimization technique as appropriate and may include automated exposure control or mA/KV adjustment according to patient size. FINDINGS: The lung bases are clear. The liver demonstrates no focal mass or biliary dilatation. Cholecystectomy clips. The spleen, adrena l glands are normal. Small stones are present in the calices of both kidneys without hydronephrosis. Mild fluid and inflammation is seen in the region of the duodenal C-loop/pancreatic head. No bowel obstruction, free air, free fluid or abscess. Appendectomy. No evidence of significant lym phadenopathy. No suspicious bony findings. IMPRESSION: Mild fluid and inflammation is seen in the region the duodenal C-loop and pancreatic hea d which could indicate mild duodenitis or pancreatitis.
[2022-01-21 20:32] LABS: Platelet Estimate ADEQ; Toxic Granulation 1+
[2022-01-21 20:33] LABS: Blood Morphology Comment NOT SEEN (NOT SEEN)
[2022-01-21] MEDS ORDERED: NA CHLORIDE 0.9% 100 ML IV ONE (20:38)
[2022-01-21] MEDS ORDERED: PIPERACIL/TAZO 4.5 GM VIAL IV ONE (20:38)
[2022-01-21] MEDS ORDERED: NA CHLORIDE 0.9% 2,000 ML ONE (20:38)
--- NOTE | 2022-01-21 21:14 | ER ---
Nurse's Notes [facility] [place] Name: Aline Alfred Age: 46 yrs Sex: Female : 1975 Arrival Date: 01/21/2022 Time: 18:04 Bed 2 Private MD: Diagnosis: Biliary acute pancreatitis;Elevated white blood cell count Presentation: 01/21 18:21 Chief complaint: Spouse and/or significant other states: ERCP AT [facility] TODAY AT bp 0930. RUQ PAIN AFTER D/C. DR LLAMAS REFERRED TO ER FOR POST ERCP PANCREATITIS. Coronavirus screen: At this time, the client does not indicate any symptoms associated with coronavirus-19. Ebola Screen: No symptoms or risks identified at this time. Initial Sepsis Screen: Does the patient meet any 2 criteria? No. Patient's initial sepsis screen is negative. Does the patient have a suspected source of infection? No. Patient's initial sepsis screen is negative. Risk Assessment: Do you want to hurt yourself or someone else?. Onset of symptoms was January 21, 2022 at 12:30. 18:21 Method Of Arrival: Ambulatory bp 18:21 Acuity: RACHAEL 2 ss Historical: - Allergies: 18:23 Cipro PO; bp - PMHx: 18:23 Kidney stone; bp - PSHx: 18:23 Appendectomy; Cholecystectomy; bp - Immunization history:: Client reports receiving the 2nd dose of the Covid vaccine. - Social history:: Smoking status: Patient denies any tobacco usage or history of. Screenin:25 Abuse screen: Denies threats or abuse. Denies injuries from another. Nutritional bp screening: No deficits noted. Tuberculosis screening: No symptoms or risk factors identified. Fall Risk None identified. Assessment: 18:25 Reassessment: SYNCOPAL EPISODE AT TRIAGE WITH PALLOR AND DIAPHORESIS, PT MOVED TO ED2. bp 18:42 General: Appears uncomfortable, Behavior is drowsy. Pain: Complains of pain in abdomen. ww Neuro: Level of Consciousness is awake, alert, obeys commands, drowsy. Cardiovascular: Rhythm is regular Chest pain is denied. Respiratory: Airway is patent Respiratory effort is even, unlabored, Respiratory pattern is regular, symmetrical. GI: Abdomen is non-distended, Abd is soft X 4 quads Reports lower abdominal pain, upper abdominal pain. EENT: No signs and/or symptoms were reported regarding the EENT system. Derm: Skin is intact, Skin is clammy, Skin is pale, Skin temperature is cool. 19:34 General: Appears uncomfortable, Behavior is calm, cooperative, drowsy. Pain: Complains al4 of pain in right upper quadrant Pain radiates to back Pain currently is 10 out of 10 on a pain scale. Neuro: Level of Consciousness is awake, alert, obeys commands, Oriented to person, place, time, situation. Cardiovascular: Capillary refill < 3 seconds Patient's skin is warm and dry. Respiratory: Airway is patent Respiratory effort is unlabored, Respiratory pattern is symmetrical. GI: Patient currently denies nausea. Derm: Skin is intact, Skin is pink, warm \\T\\ dry. Musculoskeletal: Circulation, motion, and sensation intact. 19:35 Reassessment: patient states she is feeling better than when she arrived. the feeling al4 of "passing out" is gone and the nausea has gone away. patient still complains of pain. 20:30 Reassessment: Patient is alert, oriented x 3, equal unlabored respirations, skin al4 warm/dry/pink. 21:21 Reassessment: patient wheeled to restroom by . al4 21:25 Reassessment: Patient is alert, oriented x 3, equal unlabored respirations, skin al4 warm/dry/pink. 22:41 Reassessment: Patient is alert, oriented x 3, equal unlabored respirations, skin al4 warm/dry/pink. 23:00 Reassessment: patient and aware of transfer. al4 23:03 Reassessment: attempted report to receiving facility. on hold greater than 5 minutes. al4 23:17 Reassessment: Report called to [facility] Jacobsen. al4 Vital Signs: 18:21 BP 129 / 80; Pulse 66; Resp 20; Temp 98.4; Pulse Ox 99% ; Weight 68.04 kg; Height 5 ft. bp 2 in. (157.48 cm); 19:33 BP 132 / 73; Pulse 64; Resp 16 S; Pulse Ox 100% on R/A; Pain 10/10; al4 20:00 Pain 7/10; al4 20:00 BP 132 / 62; Pulse 74; Resp 19 S; Pulse Ox 99% on R/A; al4 21:18 BP 135 / 74; Pulse 62; Resp 18 S; Pulse Ox 99% on R/A; al4 22:00 BP 130 / 75; Pulse 67; Resp 18 S; Pulse Ox 100% on R/A; al4 23:00 BP 134 / 75; Pulse 67; Resp 20 S; Pulse Ox 98% on R/A; al4 18:21 Body Mass Index 27.44 (68.04 kg, 157.48 cm) bp ED Course: 18:04 Patient arrived in ED. ds1 18:23 Triage completed. bp 18:23 Arm band placed on. bp 18:25 Patient has correct armband on for positive identification. Bed in low position. Call bp light in reach. Side rails up X2. Adult w/ patient. 18:34 Aman Sarmiento PA is PHCP. jr8 18:34 Jayce Hong DO is Attending Physician. 8 18:34 Warm blanket given. Pillow given. environmental monitoring specialist on. Pulse ox on. NIBP on. [facility] 18:34 Initial lab(s) drawn, by ut, held in ED. Inserted saline lock: 20 gauge in right 5 antecubital area, using aseptic technique. Blood collected. 18:35 EKG done, by ED staff, reviewed by Aman TERRELL. 5 18:59 Lisandra Cleveland RN is Primary Nurse. [facility] 19:19 Primary Nurse role handed off by Lisandra Cleveland RN mw2 19:56 CT Abd/Pelvis - IV Contrast Only In Process Unspecified. EDMS 20:37 initiated a transfer with Amena from [facility]. mw2 21:00 connected Aman TERRELL with Dr. Oconnell from [facility]. mw2 21:06 Johnson Grewal is Primary Nurse. al4 22:37 administrative approval given by Amena Friend/ patient has been accepted to [address]51/ Dr. Oconnell accepted the patient in transfer/ report to be called to [phone]. 23:16 No provider procedures requiring assistance completed. Patient transferred, IV remains al4 in place. Administered Medications: 18:42 Drug: NS 0.9% 1000 ml Route: IV; Rate: 1 bolus; Site: right antecubital; ww 19:30 Follow up: IV Status: Completed infusion; IV Intake: 1000ml al4 18:42 Drug: Zofran (Ondansetron) 4 mg Route: IVP; Site: right antecubital; ww 19:00 Follow up: Response: No adverse reaction al4 19:33 Drug: fentaNYL (PF) 50 mcg Route: IVP; Site: right antecubital; al4 20:00 Follow up: Pain 7/10 Adult; Response: No adverse reaction; RASS: Alert and Calm (0) al4 21:07 Drug: Zosyn (piperacillin-tazobactam) 4.5 grams Route: IVPB; Infused Over: 60 mins; al4 Site: right antecubital; 22:00 Follow up: IV Status: Completed infusion; IV Intake: 100ml al4 21:07 Drug: NS 0.9% 1000 ml Route: IV; Rate: 1 bolus; Site: right antecubital; al4 23:26 Follow up: IV Status: Completed infusion; IV Intake: 800ml al4 21:07 Drug: NS 0.9% 1000 ml Route: IV; Rate: 500 ml/hr; Site: right antecubital; al4 23:25 Follow up: IV Status: Completed infusion; IV Intake: 800ml al4 21:39 Drug: fentaNYL (PF) 50 mcg Route: IVP; Site: right antecubital; al4 22:00 Follow up: Response: No adverse reaction; RASS: Alert and Calm (0) al4 22:38 Drug: Zofran (Ondansetron) 4 mg Route: IVP; Site: right antecubital; bb 23:00 Follow up: Response: No adverse reaction al4 22:41 Drug: Dilaudid (HYDROmorphone) 1 mg {Note: RASS 0.} Route: IVP; Site: right antecubital;bb 23:00 Follow up: Response: No adverse reaction; RASS: Alert and Calm (0) al4 Intake: 19:30 IV: 1000ml; Total: 1000ml. al4 22:00 IV: 100ml; Total: 1100ml. al4 23:25 IV: 800ml; Total: 1900ml. al4 23:26 IV: 800ml; Total: 2700ml. al4 Outcome: 21:13 ER care complete, transfer ordered by MD. finch 23:16 Transferred by ground EMS to [facility]. al4 23:16 Condition: stable 23:16 Instructed on the need for transfer, Demonstrated understanding of instructions. 23:27 Patient left the ED. al4 Signatures: Dispatcher [employer] EDUT Sonja Hester dsSusan Kellie Bates RN RN bb Rose Joy RN RN ss Aman Sarmiento PA PA jr8 Maggi Hurtado Lisandra Yepez RN RN jl7 Nabil Hebert RN RN bp Nyla Mcrae mw2 Johnson Grewal al4 Kath Turner RN RN ww Corrections: (The following items were deleted from the chart) 18:32 18:32 Reassessment: SYNCOPAL EPISODE AT TRIAGE WITH PALLOR AND DIAPHORESIS, PT MOVED TO bp ED2 bp 18:34 18:21 Acuity: RACHAEL 3 bp ss 19:33 19:33 fentaNYL (PF) 50 mcg IVP in right forearm al4 al4
--- NOTE | 2022-01-21 21:14 | EDPHYS ---
Physician Documentation [facility] Name: Aline Alfred Age: 46 yrs Sex: Female : 1975 Arrival Date: 01/21/2022 Time: 18:04 Bed 2 Private MD: ED Physician Jayce Hong HPI: 01/21 20:07 This 46 yrs old Female presents to ER via Ambulatory with complaints of Post Surgical jr8 Pain. 20:07 Onset: The symptoms/episode began/occurred acutely, today. Associated signs and jr8 symptoms: Pertinent positives: nausea and vomiting. The symptoms are described as stabbing. Modifying factors: The symptoms are alleviated by nothing, the symptoms are aggravated by nothing. Severity of pain: At its worst the pain was moderate in the emergency department the pain is unchanged. The patient has not experienced similar symptoms in the past. The patient has been recently seen by a physician:. This is a 46-year-old female patient that presented to the emergency room with acute onset upper abdominal pain along with nausea and vomiting. Patient had a syncopal episode and was cool pale and diaphoretic upon arrival. Patient was discharged from [facility] after having outpatient ERCP completed today. Patient's stent was taken out today. Since she has been discharged has had extreme upper abdominal pain with nausea.. Historical: - Allergies: 18:23 Cipro PO; bp - PMHx: 18:23 Kidney stone; bp - PSHx: 18:23 Appendectomy; Cholecystectomy; bp - Immunization history:: Client reports receiving the 2nd dose of the Covid vaccine. - Social history:: Smoking status: Patient denies any tobacco usage or history of. ROS: 21:09 Cardiovascular: Negative for chest pain, palpitations, and edema, Respiratory: Negative jr8 for shortness of breath, cough, wheezing, and pleuritic chest pain, MS/Extremity: Negative for injury and deformity, Skin: Negative for injury, rash, and discoloration. 21:09 Abdomen/GI: Positive for abdominal pain, nausea. 21:09 Neuro: Positive for syncope. 21:09 All other systems are negative. Exam: 21:09 Cardiovascular: Regular rate and rhythm with a normal S1 and S2. No gallops, murmurs, jr8 or rubs. Normal PMI, no JVD. No pulse deficits. Respiratory: Lungs have equal breath sounds bilaterally, clear to auscultation and percussion. No rales, rhonchi or wheezes noted. No increased work of breathing, no retractions or nasal flaring. 21:09 Back: No spinal tenderness. No costovertebral tenderness. Full range of motion. 21:09 MS/ Extremity: Pulses equal, no cyanosis. Neurovascular intact. Full, normal range of motion. Neuro: Awake and alert, GCS 15, oriented to person, place, time, and situation. Cranial nerves II-XII grossly intact. Motor strength 5/5 in all extremities. Sensory grossly intact. Cerebellar exam normal. Normal gait. 21:09 Constitutional: The patient appears alert, awake, diaphoretic, obviously ill. 21:09 Abdomen/GI: Inspection: abdomen appears normal, Bowel sounds: diminished, in all quadrants, Palpation: soft, in all quadrants, moderate abdominal tenderness, in the epigastric area, right upper quadrant and left upper quadrant, voluntary guarding, is not appreciated, involuntary guarding, is not appreciated, no appreciated organomegaly, Indicators: McBurney's point is not tender, Jameson's sign is negative. 21:09 Skin: Appearance: Color: pale, Temperature: cool. Vital Signs: 18:21 BP 129 / 80; Pulse 66; Resp 20; Temp 98.4; Pulse Ox 99% ; Weight 68.04 kg; Height 5 ft. bp 2 in. (157.48 cm); 19:33 BP 132 / 73; Pulse 64; Resp 16 S; Pulse Ox 100% on R/A; Pain 10/10; al4 20:00 Pain 7/10; al4 20:00 BP 132 / 62; Pulse 74; Resp 19 S; Pulse Ox 99% on R/A; al4 21:18 BP 135 / 74; Pulse 62; Resp 18 S; Pulse Ox 99% on R/A; al4 22:00 BP 130 / 75; Pulse 67; Resp 18 S; Pulse Ox 100% on R/A; al4 23:00 BP 134 / 75; Pulse 67; Resp 20 S; Pulse Ox 98% on R/A; al4 18:21 Body Mass Index 27.44 (68.04 kg, 157.48 cm) bp MDM: 18:34 Patient medically screened. [facility] 21:12 Data reviewed: vital signs, nurses notes, lab test result(s), radiologic studies, CT jr8 scan. Data interpreted: Pulse oximetry: on room air is 100 %. Interpretation: normal. Counseling: I had a detailed discussion with the patient and/or guardian regarding: the historical points, exam findings, and any diagnostic results supporting the discharge/admit diagnosis, lab results, radiology results, the need to transfer to another facility, [facility] does not immediately have the required specialist. ED course: Dr. Norman at [facility] accepted . 01/21 18:37 Order name: CBC with Diff; Complete Time: 20:34 ms3 01/21 18:37 Order name: CMP; Complete Time: 19:21 ms3 01/21 18:37 Order name: Lipase; Complete Time: 19:21 ms3 01/21 18:57 Order name: COVID-19 SARS RT PCR (Document "Date of Onset" if Symptomatic); Complete bd Time: 19:52 01/21 20:33 Order name: Manual Differential; Complete Time: 20:34 EDMS 01/21 21:06 Order name: Blood Culture Adult (2) al4 01/21 18:37 Order name: CT Abd/Pelvis - IV Contrast Only; Complete Time: 20:15 ms3 01/21 18:37 Order name: IV Saline Lock; Complete Time: 18:37 ms3 01/21 18:37 Order name: Labs collected and sent; Complete Time: 18:39 ms3 Administered Medications: 18:42 Drug: NS 0.9% 1000 ml Route: IV; Rate: 1 bolus; Site: right antecubital; ww 19:30 Follow up: IV Status: Completed infusion; IV Intake: 1000ml al4 18:42 Drug: Zofran (Ondansetron) 4 mg Route: IVP; Site: right antecubital; ww 19:00 Follow up: Response: No adverse reaction al4 19:33 Drug: fentaNYL (PF) 50 mcg Route: IVP; Site: right antecubital; al4 20:00 Follow up: Pain 7/10 Adult; Response: No adverse reaction; RASS: Alert and Calm (0) al4 21:07 Drug: Zosyn (piperacillin-tazobactam) 4.5 grams Route: IVPB; Infused Over: 60 mins; al4 Site: right antecubital; 22:00 Follow up: IV Status: Completed infusion; IV Intake: 100ml al4 21:07 Drug: NS 0.9% 1000 ml Route: IV; Rate: 1 bolus; Site: right antecubital; al4 23:26 Follow up: IV Status: Completed infusion; IV Intake: 800ml al4 21:07 Drug: NS 0.9% 1000 ml Route: IV; Rate: 500 ml/hr; Site: right antecubital; al4 23:25 Follow up: IV Status: Completed infusion; IV Intake: 800ml al4 21:39 Drug: fentaNYL (PF) 50 mcg Route: IVP; Site: right antecubital; al4 22:00 Follow up: Response: No adverse reaction; RASS: Alert and Calm (0) al4 22:38 Drug: Zofran (Ondansetron) 4 mg Route: IVP; Site: right antecubital; bb 23:00 Follow up: Response: No adverse reaction al4 22:41 Drug: Dilaudid (HYDROmorphone) 1 mg {Note: RASS 0.} Route: IVP; Site: right antecubital;bb 23:00 Follow up: Response: No adverse reaction; RASS: Alert and Calm (0) al4 Disposition: 01/22 11:02 Co-signature as Attending Physician, Jayce Hong DO I was immediately available on-site ms3 in the Emergency Department for consultation in the care of the patient.. Disposition Summary: 01/21/22 21:13 Transfer Ordered Transfer Location: [facility] jr8 Reason: Higher level of care jr8 Condition: Stable jr8 Problem: new jr8 Symptoms: have improved jr8 Accepting Physician: Dr. Oconnell(01/21/22 23:27) al4 Diagnosis - Biliary acute pancreatitis jr8 - Elevated white blood cell count jr8 Forms: - Medication Reconciliation Form jr8 - SBAR form jr8 Signatures: Dispatcher [employer] Kellie Mckeon RN RN bb Roszak, Josh, PA PA jr8 Lisandra Clevealnd RN RN jl7 Nabil Hebert RN RN bp Sims, Marcus, DO DO ms3 Johnson Grewal al4 Kath Turner RN [facility] ww Corrections: (The following items were deleted from the chart) 01/21 23:27 21:13 Dr. Oconnell jr8 al4
[2022-01-21] MEDS ORDERED: HYDROMORPHONE HCL 1 MG/ML INJ ONE (22:37)
[2022-01-22 01:00] VITALS: TEMP 98.4
[2022-01-22 01:07] VITALS: BP 134/75; O2SAT 98
--- NOTE | 2022-01-22 07:54 | EKG ---
Test Date: 2022-01-21 Test Time: 18:34:09 Fish Rod Maker: COURTNEY MEASUREMENT RESULTS: Intervals: Rate: 68 NE: 126 QRSD: 76 QT: 430 QTc: 457 [place]: P: 77 NE: 126 QRS: 76 T: 59 INTERPRETIVE STATEMENTS: Normal sinus rhythm Normal ECG No previous ECG available for comparison Electronically Signed On 01-22-22 07:52:32 CDT by Dylan Lancaster
== END 2022-01-21 23:27 | disposition short-term general hospital (02) ==
LOC: ER 17:59
DX: K85.90 Acute pancreatitis without necrosis or infection, unspecified (principal); D72.829 Elevated white blood cell count, unspecified; R11.2 Nausea with vomiting, unspecified; R55 Syncope and collapse; Z98.890 Other specified postprocedural states; Z20.822 Contact with and (suspected) exposure to COVID-19; Z88.1 Allergy status to other antibiotic agents
CPT/HCPCS: 96365; 96361; 93005; 87040 ×2; 85025; 36415; 83690; 80053; 74177; 96375; 99285; U0003; Q9967; J3010 ×2; J1170; J7030 ×3; J2405 ×2